=== PATIENT | female | born 1990 | race Caucasian/White ===

== ENCOUNTER 2017-09-28 10:33 | Inpatient (IN) | payer BC ==
[~2017-09-28] VITALS: Ht 162.6 cm; Wt 70.0 kg
[2017-10-22] VITALS (41 sets, daily range): BP systolic 95–159; BP diastolic 50–94; PULSE 62–100; TEMP 97.8–98.2
[2017-10-22 08:20] LABS: BASO % 0.1 % (0.0-2.0); EOS # 0.1 (0.0-0.7); EOS % 0.6 % (0-4.0); GRAN # 7.3 (1.4-6.5); HEMOGLOBIN 10.5 g/dl (12.5-16.0); LYMPH # 2.4 (1.2-3.4); LYMPH % 23.6 % (20.0-51.0); MEAN CELL VOLUME 91 fl (80.0-100.0); MEAN CORPUSCULAR HEMOGLOBIN 30 pg (27.0-31.0); MEAN CORPUSCULAR HGB CONC 33 g/dl (33.0-37.0); MEAN PLATELET VOLUME 10.7 fl (7.4-10.4); MONO # 0.5 (0.1-0.6); MONO % 5.2 % (1.7-9.3); PLATELET COUNT 182 K/mm3 (130-400); RED BLOOD COUNT 3.48 M/mm3 (4.10-5.30); REDCELL DISTRIBUTION WIDTH-CV 13.1 % (11.5-14.5)
[2017-10-22 08:22] LABS: HEMATOCRIT 31.6 % (37.0-47.0)
[2017-10-23 00:03] VITALS: BP 90/65; PULSE 84; TEMP 97.9
[2017-10-23 04:50] VITALS: BP 105/69; PULSE 80; TEMP 97.8
[2017-10-23] MEDS ORDERED: IBU600 MG PO (08:51)
[2017-10-23 09:29] VITALS: BP 119/73; PULSE 87; TEMP 98
[2017-10-23 17:00] VITALS: BP 120/78; PULSE 101; TEMP 98.4
[2017-10-23 21:04] VITALS: BP 121/70; PULSE 87; TEMP 98.3
[2017-10-24 06:30] VITALS: BP 113/80; PULSE 93; TEMP 98.2
[2017-10-24] MEDS ORDERED: PERCOCET 325 MG1 TA2 PO (08:30)
== END 2017-10-24 12:10 | disposition home or self-care (01) | DRG 775 ==
LOC: LDRO 10-20 10:32 → EDSTATUS 10-20 13:50 → LDR 10-22 06:27 → OB 10-22 16:33
PROVIDERS: Obstetrics & Gynecology
PROC: 10E0XZZ Delivery of Products of Conception, External Approach (ICD-10-PCS; principal; 2017-10-22)
PROC: 10907ZC Drainage of Amniotic Fluid, Therapeutic from Products of Conception, Via Natural or Artificial Opening (ICD-10-PCS; 2017-10-22)
PROC: 3E033VJ Introduction of Other Hormone into Peripheral Vein, Percutaneous Approach (ICD-10-PCS; 2017-10-22)
PROC: 0UQMXZZ Repair Vulva, External Approach (ICD-10-PCS; 2017-10-22)
DX: O70.0 First degree perineal laceration during delivery (principal); Z3A.40 40 weeks gestation of pregnancy; Z37.0 Single live birth
CPT/HCPCS: J2590; J7120

== ENCOUNTER 2019-04-19 06:56 | Inpatient (IN) | payer BC ==
[~2019-04-19] VITALS: Ht 165.1 cm; Wt 73.2 kg
[2019-04-19] VITALS (32 sets, daily range): BP systolic 99–131; BP diastolic 51–80; PULSE 64–123; TEMP 98–98.7
[~2019-04-19 06:56] MED LIST: IBU600 MG PO; PERCOCET 325 MG1 TA2 PO
[2019-04-19] MEDS ORDERED: PRENATAL PO (07:31)
[2019-04-19 08:15] LABS: BASO % 0.3 % (0.0-2.0); EOS # 0.1 (0.0-0.7); EOS % 0.6 % (0-4.0); GRAN # 7.8 (1.4-6.5); GRAN % 67.6 % (42.2-75.2); HEMOGLOBIN 11.3 g/dl (12.5-16.0); MEAN CELL VOLUME 88 fl (80.0-100.0); MEAN CORPUSCULAR HEMOGLOBIN 29 pg (27.0-31.0); MEAN CORPUSCULAR HGB CONC 33 g/dl (33.0-37.0); MEAN PLATELET VOLUME 10.8 fl (7.4-10.4); MONO # 0.6 (0.1-0.6); MONO % 5.1 % (1.7-9.3); PLATELET COUNT 198 K/mm3 (130-400); RED BLOOD COUNT 3.86 M/mm3 (4.10-5.30); REDCELL DISTRIBUTION WIDTH-CV 13.1 % (11.5-14.5)
[2019-04-19 08:28] LABS: HEMATOCRIT 33.9 % (37.0-47.0)
[2019-04-20 01:00] VITALS: BP 113/67; PULSE 81; TEMP 98.3
[2019-04-20 07:15] VITALS: BP 105/66; PULSE 83; TEMP 98.3
[2019-04-20] MEDS ORDERED: IBU600 MG PO (08:42)
== END 2019-04-20 15:15 | disposition home or self-care (01) | DRG 807 ==
LOC: LDR 06:56 → OB 16:30
PROVIDERS: ADMIT Obstetrics & Gynecology
PROC: 10E0XZZ Delivery of Products of Conception, External Approach (ICD-10-PCS; principal; 2019-04-19)
PROC: 0UQMXZZ Repair Vulva, External Approach (ICD-10-PCS; 2019-04-19)
PROC: 3E033VJ Introduction of Other Hormone into Peripheral Vein, Percutaneous Approach (ICD-10-PCS; 2019-04-19)
DX: O69.81X0 Labor and delivery complicated by cord around neck, without compression, not applicable or unspecified (principal); Z37.0 Single live birth; O71.82 Other specified trauma to perineum and vulva; Z3A.39 39 weeks gestation of pregnancy; Z23 Encounter for immunization
CPT/HCPCS: J2590; J2795; J7120

== ENCOUNTER 2021-08-04 09:50 | Inpatient (IN) | payer BC ==
[~2021-08-04] VITALS: Ht 167.6 cm; Wt 74.5 kg
[~2021-08-04 09:50] MED LIST changes: +PRENATAL PO
[2021-08-06] VITALS (23 sets, daily range): BP systolic 100–130; BP diastolic 52–78; PULSE 64–92; TEMP 97.9–98.2
[2021-08-06 07:04] LABS: BASO % 0.2 % (0.0-2.0); EOS # 0.1 K/mm3 (0.0-0.7); EOS % 0.5 % (0.0-4.0); GRAN # 6.1 K/mm3 (1.4-6.5); GRAN % 65.3 % (42.2-75.2); HEMOGLOBIN 11.2 g/dl (12.5-16.0); LYMPH # 2.5 K/mm3 (1.2-3.4); LYMPH % 27.3 % (20.0-51.0); MEAN CELL VOLUME 87 fl (80.0-100.0); MEAN CORPUSCULAR HEMOGLOBIN 29 pg (27-31); MEAN CORPUSCULAR HGB CONC 34 g/dl (33.0-37.0); MEAN PLATELET VOLUME 10.3 fl (7.4-10.4); MONO # 0.6 K/mm3 (0.1-0.6); MONO % 6.3 % (1.7-9.3); PLATELET COUNT 199 K/mm3 (130-400); RED BLOOD COUNT 3.83 M/mm3 (4.10-5.30)
[2021-08-06 07:07] LABS: HEMATOCRIT 33.3 % (37.0-47.0)
[2021-08-06] MEDS ORDERED: VALTREX 50500 MG/TAB PO (07:22)
--- NOTE | 2021-08-06 10:10 | NUR ---
Requests epidural. LR bolus in progress. LOUISE Johnson, notified.
--- NOTE | 2021-08-06 10:28 | NUR ---
Sitting up at side of bed for epidural placement. Time-out performed prior to procedure with LOUISE Johnson. 1032: Single shot dose administered by LOUISE. No adverse reactions noted. Tolerates procedure well.
--- NOTE | 2021-08-06 10:57 | NUR ---
Note rapid cervical progression, repeat SVE , patient has not experienced any relief from epidural. LOUISE Johnson, notified. See anesthesia records for further details. notified, requested to come to hospital for delivery.
--- NOTE | 2021-08-06 11:15 | NUR ---
1111- here for delivery. Repeat SVE /+2. Note room already set up for delivery prior to arrival. Deborah Briones, RN, nursery nurse here for delivery. Note JAXON Augustin, charge nurse in room for delivery as well. 1112-First push attempt with instruction. 1115-Spontaneous vaginal delivery of head. Note body cord around shoulders not reduced prior to rapid delivery of female infant by within same minute. 1119-Spontaneous vaginal delivery of placenta, which included accessory lobe intact. Placenta examined by , manual exploration of uterus by for trailing membranes performed. Pit bolus begun immediately following delivery of placenta @ 333mU/min.
--- NOTE | 2021-08-06 12:45 | NUR ---
IV to saline lock at this time.
--- NOTE | 2021-08-06 14:20 | NUR ---
Epidural catheter DC'd with catheter tip intact. Patient ambulates for first time post delivery/post epidural. Steady gait noted. Able to spontaneously void. Ajit care provided. Mesh underwear, ajit pad, ice pack, TUCKS, new gown applied. Transferred to [facility] per ambulation.
[2021-08-07 02:35] VITALS: BP 116/72; PULSE 68; TEMP 97.9
[2021-08-07 07:00] VITALS: BP 111/80; PULSE 75; TEMP 97.7
--- NOTE | 2021-08-07 07:39 | NUR ---
PATIENT ASSESSED BY THIS RN AND REVIEWED THE ASSESSMENT ENTERED BY SN JODY AND AGREE WITH THE FINDINGS. CARE ONGOING.
[2021-08-07] MEDS ORDERED: IBU600 MG PO (09:06)
--- NOTE | 2021-08-07 09:59 | NUR ---
Initial visit; Parents thanked Lead Former for offering congratulations and God's blessings for the of their daughter. Lead Former tha nked family for choosing [facility].
[2021-08-07 11:12] VITALS: BP 105/69; PULSE 69; TEMP 97.8
--- NOTE | 2021-08-07 13:15 | NUR ---
DISCHARGE INSTRUCTIONS REVIEWED WITH PATIENT AND SPOUSE. QUESTIONS ANSWERED. PATIENT TO FOLLOW UP WITH CLINIC INSTRUCTED. PATIENT TO FOLLOW UP WITH BABY FOR BILI RECHECK TOMORROW. PATIENT AMBULATORY TO CAR WITH RN AND SPOUSE.
== END 2021-08-07 13:15 | disposition home or self-care (01) | DRG 807 ==
LOC: LDR 08-06 06:17 → OB 08-06 06:17 → LDR 08-06 09:50 → OB 08-06 13:39 → LDR 08-06 15:55 → OB 08-07 13:15
PROVIDERS: ADMIT Obstetrics & Gynecology
PROC: 10E0XZZ Delivery of Products of Conception, External Approach (ICD-10-PCS; principal; 2021-08-06)
PROC: 0UQMXZZ Repair Vulva, External Approach (ICD-10-PCS; 2021-08-06)
PROC: 10907ZC Drainage of Amniotic Fluid, Therapeutic from Products of Conception, Via Natural or Artificial Opening (ICD-10-PCS; 2021-08-06)
PROC: 3E033VJ Introduction of Other Hormone into Peripheral Vein, Percutaneous Approach (ICD-10-PCS; 2021-08-06)
DX: O98.32 Other infections with a predominantly sexual mode of transmission complicating childbirth (principal); Z37.0 Single live birth; A60.09 Herpesviral infection of other urogenital tract; O43.193 Other malformation of placenta, third trimester; O71.82 Other specified trauma to perineum and vulva; O69.2XX0 Labor and delivery complicated by other cord entanglement, with compression, not applicable or unspecified; Z3A.39 39 weeks gestation of pregnancy
CPT/HCPCS: J2400; J2590; J2795; J7120